=== PATIENT | male | born 1975 | race Caucasian/White ===

== ENCOUNTER 2017-07-23 19:13 | Emergency (ER) | payer OTHER ==
[~2017-07-23] VITALS: Ht 172.7 cm; Wt 99.8 kg
[2017-07-23 19:29] VITALS: BP 146/95
== END 2017-07-23 23:19 | disposition home or self-care (01) ==
LOC: ER 19:13
DX: M79.602 Pain in left arm (principal)

== ENCOUNTER 2021-07-24 15:43 | Emergency (ER) | payer MEDICAID, OTHER ==
[~2021-07-24] VITALS: Ht 172.7 cm; Wt 113.4 kg
[2021-07-24 15:43] VITALS: BP 127/76
[2021-07-24] MEDS ORDERED: TRAM-297 PO (17:29)
== END 2021-07-24 17:38 | disposition home or self-care (01) ==
LOC: ER 15:43
DX: S52.502A Unspecified fracture of the lower end of left radius, initial encounter for closed fracture (principal); I10 Essential (primary) hypertension; Z79.899 Other long term (current) drug therapy; W01.0XXA Fall on same level from slipping, tripping and stumbling without subsequent striking against object, initial encounter; Y93.89 Activity, other specified; Y92.89 Other specified places as the place of occurrence of the external cause; Y99.8 Other external cause status
CPT/HCPCS: 29125; 73070; 73110